=== PATIENT | male | born 1990 | race Caucasian/White ===

== ENCOUNTER 2019-05-31 16:11 | Emergency (ER) | payer OTHER, SELFPAY ==
[2019-05-31] VITALS (29 sets, daily range): BP systolic 117–137; BP diastolic 79–93; PULSE 46–69; RESP 13–29; TEMP 36.6–37.1; O2SAT 96–100
--- NOTE | 2019-05-31 16:32 | ED.GENADUL_ITS ---
Discharge Plan Discharge Details Chief Complaint: Nausea/Vomit/Diar Primary Care Provider: Lexi,Local ED Provider: Bulmaro Rodríguez Home Meds and New Rx's Prescriptions: No Action No Known Home Meds RF: 0 Medical Decision Making 29yom presents from home in [place] with his partner. Intermittent nausea since drinking whisky 2 nights ago. Poorly toerant of PO and ongoing emesis today. No abdominal pain, no bloody stool or travel. Differential as includes gastroenteritis, gastritis due to recent alcohol use. Patient is afebrile and well-appearing apart from mild anxiety and dry mucous membranes. IV placed, labs obtained, patient given fluids, antiemetic, PPI. Labs reveal white blood cell count of 9, hematocrit 47, platelets 287. Sodium 143, potassium 3.7, chloride 104, bicarb 26, BUN 20, creatinine 1.2, lipase 311. Total bili 0.9. Patient with mild persistent nausea without ongoing emesis, improving following 2L NS and started on maintenance dextrose containing fluids. Following Lab Data Lab results reviewed: Yes I reviewed the patient's lab results. Laboratory Results - last 24 hr 05/31/19 05/31/19 16:40 16:40 WBC 9.61 RBC 5.54 Hgb 16.9 Hct 47.4 MCV 85.6 MCH 30.5 MCHC 35.7 RDW 12.5 Plt Count 287 MPV 10.0 Immature Gran % 0.2 Neutrophils % 70.8 Lymphocytes % 20.9 Monocytes % 6.8 Eosinophils % 0.9 Basophils % 0.4 Absolute Neutrophils 6.80 H Absolute Lymphocytes 2.01 Absolute Monocytes 0.65 Absolute Eosinophils 0.09 Absolute Basophils 0.04 Sodium 143 Potassium 3.7 Chloride 104 Carbon Dioxide 26.4 Anion Gap 12.6 H BUN 20 H Creatinine 1.22 Estimated GFR/1.73 m2 >= 60.00 Glucose 100 Calcium 9.6 Total Bilirubin 0.9 AST 20 ALT 39 Alkaline Phosphatase 68 Total Protein 8.1 Albumin 4.8 Lipase 311 HPI General Mode of arrival: ambulatory . Date/Time Provider Initiated Documentation: 05/31/19 16:24 . Limitations to Documentation: no limitations . Information obtained by: patient and family . History of Present Illness 29 year old M presents to the emergency department with the chief complaint of 2 days N/V with poor po intake. Denies travel or fever. no bloody diarrhea, described as moderate, and is localized to the abdomen. Patient reports no radiation. Patient started experiencing this day(s) and it has been intermittent. No relieving factors improve symptom(s), Eating worsens symptoms . Patient notes loss of appetite, malaise, nausea/vomiting and weakness; denies fever/chills. Patient did receive the following treatments prior to arrival, none Related Data Home Medications Medication Instructions Recorded Confirmed Unknown [No Known Home Meds] 05/31/19 05/31/19 Allergies Allergy/AdvReac Type Severity Reaction Status Date / Time No Known Allergies Allergy Unverified 05/31/19 16:13 General Stated Complaint: Nausea/Vomit/Diar CARMEN: 3 Review of Systems Review of Systems 6 systems reviewed and otherwise negative [facility] Social History Smoking/Tobacco Use Status: Never Drug use: Occasionally Substance use type: marijuana Do you feel safe at home: Yes Do you feel safe in your relationship?: Yes Exam Narrative Exam Narrative: GEN: awake, alert, oriented 3. Pleasant, well groomed, interactive. HEAD: Normocephalic, atraumatic ENT: Mucous membranes dry, oropharynx unremarkable, External ear exam unremarkab le EYES: PERRL, EOMI NECK: Full ROM, no TASHA, no menigismus CHEST/RESP: Nontender, clear to auscultation bilateral, no wheeze/rhonchi/rales CARDIOVASCULAR: RRR, no murmur, rub satya. 2+ Rad pulse bilateral ABDOMEN: Soft, nontender, no mass. +Bowel sounds EXT: Full ROM, no edema, no rash Neuro: Grossly normal neurologic exam, conversant, interactive. Psych: Speech fluent, thoughts congruent, affect anxious Course Vital Signs Temperature 37.1 C 05/31/19 16:14 Pulse 63 05/31/19 16:14 Respiratory Rate 18 05/31/19 16:14 Blood Pressure 133/93 H 05/31/19 16:14 Pulse Oximetry 100 05/31/19 16:14 Temperature 37.1 C 05/31/19 16:14 Temperature Source Temporal Artery Scan 05/31/19 16:14 Pulse 63 05/31/19 16:14 Respiratory Rate 18 05/31/19 16:14 Respiratory Effort Non-Labored 05/31/19 16:18 Blood Pressure 133/93 H 05/31/19 16:14 Blood Pressure Position Sitting 05/31/19 16:14 Pulse Oximetry 100 05/31/19 16:14 Oxygen Delivery Method Room Air 05/31/19 16:14 Oxygen Flow Rate 0 05/31/19 16:14 Pain Level 0 05/31/19 16:14
[2019-05-31] MEDS: Ondansetron 4 MG/2 ML VIAL IVP (16:56)
[2019-05-31] MEDS: Normal Saline 1,000 ML 1000 ML IV ×2 (16:56→18:30)
[2019-05-31] MEDS: Pantoprazole 40 MG VIAL IVP (16:57)
[2019-05-31 16:59] LABS: Abs Immature Grans 0.02 k/cumm (0.0-0.09); Absolute Basophil Count 0.04 k/cumm (0.0-0.2); Absolute Eosinophil Count 0.09 k/cumm (0.0-0.7); Absolute Lymphocyte Count 2.01 k/cumm (1.2-3.4); Absolute Monocyte Count 0.65 k/cumm (0.11-0.7); Basophils % 0.4; Eosinophils % 0.9; HCT 47.4 % (40.0-50.0); HGB 16.9 g/dL (13.5-17.5); Immature Grans % 0.2; Lymphocytes % 20.9; Mean Corp. HGB Concentration 35.7 g/dL (32.0-36.0); Mean Corpuscular Hemoglobin 30.5 pg (27.0-33.0); Mean Corpuscular Volume 85.6 fL (80-95); Monocytes % 6.8; Neutrophils % 70.8; Platelet Count 287 x1000/uL (130-400); RBC 5.54 m/cumm (4.50-6.00); RBC Distribution Width 12.5 % (11.8-14.1); White Blood Cell Count 9.61 k/cumm (4.4-10.8)
[2019-05-31 17:13] LABS: ALT 39 U/L (12-78); AST 20 U/L (15-37); Albumin 4.8 g/dL (3.4-5.0); Alkaline Phosphatase 68 U/L (46-116); Anion Gap 12.6 mmol/L (3-11); BUN 20 mg/dL (7-18); Bilirubin, Total 0.9 mg/dL (0.2-1.0); CO2 26.4 mmol/L (21.0-32.0); CREATININE 1.22 mg/dL (0.70-1.30); Calcium 9.6 mg/dL (8.5-10.1); Chloride 104 mmol/L (98-107); Glucose 100 mg/dL (70-100); Lipase 311 U/L (73-393); Potassium 3.7 mmol/L (3.5-5.1); Sodium 143 mmol/L (136-145); Total Protein 8.1 g/dL (6.4-8.2)
[2019-05-31] MEDS: LORazepam 2 MG/ML VIAL 1 MG IVP (17:29)
[2019-05-31] MEDS: Ondansetron O.D.T. 4 MG TABEF 16 MG PO (21:50)
== END 2019-05-31 21:53 | disposition home or self-care (01) ==
PROVIDERS: Emergency Provider Emergency Medicine
DX: K29.00 Acute gastritis without bleeding (principal)
CPT/HCPCS: 36415; 80053; 83690; 96361; 96365; 96375; 99284; 85025; J2060; J2405